=== PATIENT | male | born 1990 | race Caucasian/White ===

== ENCOUNTER 2016-12-17 20:56 | Emergency (ER) | payer OTHER, BC ==
[2016-12-17] MEDS ORDERED: ADACEL/BOOSTRIX VACCINE (DIPHTH/PERTUSS/ACELL/TETANUS)0.5ML SYR (90715) As Ordered ONE (22:30)
[2016-12-17] MEDS ORDERED: DERMABOND TOPICAL SKIN ADHESIVE As Ordered ONE (23:16)
--- NOTE | 2016-12-17 23:42 | EDDOCDS ---
Nurse's Notes [facility] Name: Lucas Mary Age: 25 yrs Sex: Male : 1990 Arrival Date: 12/17/2016 Time: 20:56 Bed I6 / 28 Private MD: No Pcp Diagnosis: Laceration without foreign body of other part of head Presentation: 12/17 21:06 Presenting complaint: Patient states: was working throwing metal into dumpster that cz bounced of dumpster striking him in forehead no LOC. Adult Sepsis Screening: The patient does not have new or worsening altered mentation. Patient's respiratory rate is less than 22. Systolic blood pressure is greater than 100. Patient has a qSOFA score of 0- Negative Sepsis Screen. Suicide/Homicide risk assessment- the patient denies having any suicidal and/or homicidal ideations and does not present with any other emotional, behavioral or mental health complaints. Status: Patient is not a ward service supervisor or dependent. Transition of care: patient was not received from another setting of care. 21:06 Acuity: ANNA Level 4 cz 21:06 Method Of Arrival: Walkin/Carried/Asstd cz Triage Assessment: 21:08 General: Appears in no apparent distress. Pain: Denies pain. Pain. HIV screening NA for cz this visit Offered previously. Historical: - Allergies: Ceclor (Unknown); - Home Meds: 1. none - PSHx: ankle surgery right; - Immunization history:: Last tetanus immunization: unknown. - Family history: Not pertinent. - Social history: Smoking status: Patient states was never smoker of tobacco. No barriers to communication noted, The patient speaks fluent Maltese, Speaks appropriately for age. - : The pt / caregiver states he / she is not on anticoagulants. Home medication list is obtained from the patient. - Exposure Risk Screening:: None identified. Screenin:15 Screening information is obtained from the patient. Fall risk: No risks identified. cz Assistance ADL's: requires no assistance with activities of daily living. Abuse/DV Screen: The patient / caregiver reports he/she is: not in a situation that causes fear, pain or injury. Nutritional screening: No deficits noted. Advance Directives: Currently, there is no health care proxy. There is no active DNR order. There is no living will. There is no Power of Installation & Maintenance Executive. Advance directive information has not previously been placed in an [facility] medical record. home support is adequate. Assessment: 22:15 General: alert male with two lacerations to forehead no bleeding at current time. cz 22:35 General: Appears in no apparent distress, Behavior is cooperative, pleasant. ld5 Neurological: Level of Consciousness is awake, alert. Respiratory: Airway is patent Respiratory effort is even, unlabored. Injury Description: Laceration sustained to forehead is not bleeding. 23:40 General: Appears in no apparent distress, Behavior is cooperative. Pain: Denies pain. ld5 Neurological: Level of Consciousness is awake, alert. Respiratory: Airway is patent Respiratory effort is even, unlabored. Vital Signs: 20:57 BP 148 / 73; Pulse 58; Resp 18; Temp 98.8; Pulse Ox 97% ; Weight 86.18 kg; Height 6 ft. elp 2 in. (187.96 cm); Pain 0/10; 20:57 Body Mass Index 24.39 (86.18 kg, 187.96 cm) elp Vitals: 20:57 Log In Time: December 17, 2016 at 20:55. elp ED Course: 20:57 Patient visited by Graciela Bowles PCA. elp 20:57 No Pcp is Private Physician. elp 20:57 Patient moved to Waiting elp 20:58 Patient visited by Graciela Bowles PCA. elp 20:58 Patient moved to Pre RCE elp 21:07 Triage Initiated cz 22:13 Patient moved to Triage 3 cz 22:15 The patient / caregiver is instructed regarding the plan of care and ED course. cz 22:16 [facility] ar2 22:16 Frank Mercado DO is Attending Physician. ar2 22:16 Patient visited by Jeremiah Quintana PA-C. ar2 22:25 Patient moved to I cln 22:36 Patient visited by Meghann Joshua RN. ld5 23:20 Assist provider with laceration repair using Dermabond. Laceration was 2.6 to 7.5 cm. ld5 with a simple repair. Performed by Jeremiah Quintana PA-C Patient tolerated well. 23:38 [facility] Payment Agreement was scanned into [employer] and attached to record. [email or web address] 23:40 No IV's were initiated during this patient's visit. ld5 23:41 Patient visited by Meghann Joshua,RN. ld5 Administered Medications: 22:34 Drug: Tetanus- Diptheria-Acellular Pertussis 0.5 ml [diphth,pertussis(acel),tetanus 2.5 ld5 Lf unit-8 mcg-5 Lf/0.5mL IM syringe (0.5 mL)] {Associate Theatre Professor: [employer]. Exp: 01/07/2019. Lot #: [id number]. } Route: IM; Site: left deltoid; Order Results: There are currently no results for this order. Outcome: 23:32 Discharge ordered by Provider. ar2 23:40 Discharge Assessment: Patient awake, alert and oriented x 3. No cognitive and/or ld5 functional deficits noted. Patient verbalized understanding of disposition instructions. patient administered narcotics - no. The following High Risk Discharge criteria are identified: None. Discharged to home ambulatory, with parent. Condition: stable. Discharge instructions given to patient, parents Instructed on discharge instructions, follow up and referral plans. wound care, Demonstrated understanding of instructions, Pt was receptive of discharge instructions/ teaching. No special radiology studies were completed. Property :Personal belongings accompany Pt. 23:41 Patient left the ED. ld5 Signatures: Kg Pierce, JAI RN Jeremiah Zhong PA-C PA-C ar2 Meghann Joshua,RN RN ld5 Graciela Bowles, [address] [place] lucillep Lucina Herman, Reg Reg ks16 Janee Tran, [address] [place] cln MTDD
--- NOTE | 2016-12-17 23:42 | EDDOCDS ---
Physician Documentation [facility] Name: Lucas Mary Age: 25 yrs Sex: Male : 1990 Arrival Date: 12/17/2016 Time: 20:56 Bed I6 / 28 Private MD: No Pcp Disposition: 12/17/16 23:32 Discharged to Home/Self Care. Impression: Laceration without foreign body of other part of head. - Condition is Stable. - Discharge Instructions: Tissue Adhesive Wound Care. - Medication Reconciliation, Local Pharmacy Hours form. - Follow up: Emergency Department; When: As needed; Reason: Worsening of conditions. - Problem is new. - Symptoms have improved. Historical: - Allergies: Ceclor (Unknown); - Home Meds: 1. none - PSHx: ankle surgery right; - Immunization history:: Last tetanus immunization: unknown. - Family history: Not pertinent. - Social history: Smoking status: Patient states was never smoker of tobacco. No barriers to communication noted, The patient speaks fluent Czech, Speaks appropriately for age. - : The pt / caregiver states he / she is not on anticoagulants. Home medication list is obtained from the patient. - Exposure Risk Screening:: None identified. Vital Signs: 12/17 20:57 BP 148 / 73; Pulse 58; Resp 18; Temp 98.8; Pulse Ox 97% ; Weight 86.18 kg / 189.99 lbs; elp Height 6 ft. 2 in. (187.96 cm); Pain 0/10; 20:57 Body Mass Index 24.39 (86.18 kg, 187.96 cm) elp MDM: 22:24 Tetanus- Diptheria-Acellular Pertussis 0.5 ml IM once; Routine booster 10-64yrs, >64 ar2 with child contact [place] [employer] ordered. 22:24 Ice Pack ordered. ar2 23:16 Dermabond to bedside ordered. ar2 23:38 Financial registration complete. [facility] 23:38 [facility] Payment Agreement was scanned into [employer] and attached to record. 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 Exp: 01/07/2019. Lot #: [id number]. } Route: IM; Site: left deltoid; Signatures: Kg Pierce RN RN cz Jeremiah Quintana, PAFamC PA-C ar2 Meghann Joshua RN RN ld5 Lucina Herman, Reg Reg ks16 The chart was reviewed and I authenticate all verbal orders and agree with the evaluation and treatment provided.Attachments: 23:38 [facility] Payment Agreement ks16 MTDD
--- NOTE | 2016-12-20 00:42 | EDDOCDS ---
Physician Documentation [facility] Name: Lucas Mary Age: 25 yrs Sex: Male : 1990 Arrival Date: 12/17/2016 Time: 20:56 Bed I6 / 28 Private MD: No Pcp Disposition: 12/17/16 23:32 Discharged to Home/Self Care. Impression: Laceration without foreign body of other part of head. - Condition is Stable. - Discharge Instructions: Tissue Adhesive Wound Care. - Medication Reconciliation, Local Pharmacy Hours form. - Follow up: Emergency Department; When: As needed; Reason: Worsening of conditions. - Problem is new. - Symptoms have improved. Historical: - Allergies: Ceclor (Unknown); - Home Meds: 1. none - PSHx: ankle surgery right; - Immunization history:: Last tetanus immunization: unknown. - Family history: Not pertinent. - Social history: Smoking status: Patient states was never smoker of tobacco. No barriers to communication noted, The patient speaks fluent Malay, Speaks appropriately for age. - : The pt / caregiver states he / she is not on anticoagulants. Home medication list is obtained from the patient. - Exposure Risk Screening:: None identified. Vital Signs: 12/17 20:57 BP 148 / 73; Pulse 58; Resp 18; Temp 98.8; Pulse Ox 97% ; Weight 86.18 kg / 189.99 lbs; elp Height 6 ft. 2 in. (187.96 cm); Pain 0/10; 20:57 Body Mass Index 24.39 (86.18 kg, 187.96 cm) elp MDM: 22:24 Tetanus- Diptheria-Acellular Pertussis 0.5 ml IM once; Routine booster 10-64yrs, >64 ar2 with child contact [place] [employer] ordered. 22:24 Ice Pack ordered. ar2 23:16 Dermabond to bedside ordered. ar2 23:38 Financial registration complete. [facility] 23:38 [facility] Payment Agreement was scanned into [employer] and attached to record. [email or web address] 12/18 10:54 T-Sheet-- Draft Copy was scanned into [employer] and attached to record. 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 Exp: 01/07/2019. Lot #: [id number]. } Route: IM; Site: left deltoid; Signatures: Kg Pierce, JAI RN cz Daisy Camacho, Reg Reg gb Jeremiah Quintana, MOJGAN ULRICH ar2 Meghann Joshua RN RN ld5 Lucina Herman, Reg Reg ks16 The chart was reviewed and I authenticate all verbal orders and agree with the evaluation and treatment provided.Attachments: 23:38 [facility] Payment Agreement ks16 12/18 10:54 T-Sheet-- Draft Copy gb Chart Complete MTDD
--- NOTE | 2016-12-20 00:42 | EDDOCDS ---
Nurse's Notes [facility] Name: Lucas Mary Age: 25 yrs Sex: Male : 1990 Arrival Date: 12/17/2016 Time: 20:56 Bed I6 / 28 Private MD: No Pcp Diagnosis: Laceration without foreign body of other part of head Presentation: 12/17 21:06 Presenting complaint: Patient states: was working throwing metal into dumpster that cz bounced of dumpster striking him in forehead no LOC. Adult Sepsis Screening: The patient does not have new or worsening altered mentation. Patient's respiratory rate is less than 22. Systolic blood pressure is greater than 100. Patient has a qSOFA score of 0- Negative Sepsis Screen. Suicide/Homicide risk assessment- the patient denies having any suicidal and/or homicidal ideations and does not present with any other emotional, behavioral or mental health complaints. Status: Patient is not a truck rental service attendant or dependent. Transition of care: patient was not received from another setting of care. 21:06 Acuity: ANNA Level 4 cz 21:06 Method Of Arrival: Walkin/Carried/Asstd cz Triage Assessment: 21:08 General: Appears in no apparent distress. Pain: Denies pain. Pain. HIV screening NA for cz this visit Offered previously. Historical: - Allergies: Ceclor (Unknown); - Home Meds: 1. none - PSHx: ankle surgery right; - Immunization history:: Last tetanus immunization: unknown. - Family history: Not pertinent. - Social history: Smoking status: Patient states was never smoker of tobacco. No barriers to communication noted, The patient speaks fluent Latvian, Speaks appropriately for age. - : The pt / caregiver states he / she is not on anticoagulants. Home medication list is obtained from the patient. - Exposure Risk Screening:: None identified. Screenin:15 Screening information is obtained from the patient. Fall risk: No risks identified. cz Assistance ADL's: requires no assistance with activities of daily living. Abuse/DV Screen: The patient / caregiver reports he/she is: not in a situation that causes fear, pain or injury. Nutritional screening: No deficits noted. Advance Directives: Currently, there is no health care proxy. There is no active DNR order. There is no living will. There is no Power of Right Of Way Appraiser. Advance directive information has not previously been placed in an [facility] medical record. home support is adequate. Assessment: 22:15 General: alert male with two lacerations to forehead no bleeding at current time. cz 22:35 General: Appears in no apparent distress, Behavior is cooperative, pleasant. ld5 Neurological: Level of Consciousness is awake, alert. Respiratory: Airway is patent Respiratory effort is even, unlabored. Injury Description: Laceration sustained to forehead is not bleeding. 23:40 General: Appears in no apparent distress, Behavior is cooperative. Pain: Denies pain. ld5 Neurological: Level of Consciousness is awake, alert. Respiratory: Airway is patent Respiratory effort is even, unlabored. Vital Signs: 20:57 BP 148 / 73; Pulse 58; Resp 18; Temp 98.8; Pulse Ox 97% ; Weight 86.18 kg; Height 6 ft. elp 2 in. (187.96 cm); Pain 0/10; 20:57 Body Mass Index 24.39 (86.18 kg, 187.96 cm) elp Vitals: 20:57 Log In Time: December 17, 2016 at 20:55. elp ED Course: 20:57 Patient visited by Graciela Bowles PCA. elp 20:57 No Pcp is Private Physician. elp 20:57 Patient moved to Waiting elp 20:58 Patient visited by Graciela Bowles PCA. elp 20:58 Patient moved to Pre RCE elp 21:07 Triage Initiated cz 22:13 Patient moved to Triage 3 cz 22:15 The patient / caregiver is instructed regarding the plan of care and ED course. cz 22:16 Jeremiah Quintana [facility]-C [facility]. ar2 22:16 Frank Mercado DO is Attending Physician. ar2 22:16 Patient visited by Jeremiah Quintana PA-C. ar2 22:25 Patient moved to I cln 22:36 Patient visited by Meghann Joshua RN. ld5 23:20 Assist provider with laceration repair using Dermabond. Laceration was 2.6 to 7.5 cm. ld5 with a simple repair. Performed by Jeremiah Quintana PA-C Patient tolerated well. 23:38 [facility] [place] Agreement was scanned into [employer] and attached to record. ks16 23:40 No IV's were initiated during this patient's visit. ld5 23:41 Patient visited by Meghann Joshua RN. ld5 12/18 10:54 T-Sheet-- Draft Copy was scanned into [employer] and attached to record. gb Administered Medications: 12/17 22:34 Drug: Tetanus- Diptheria-Acellular Pertussis 0.5 ml [diphth,pertussis(acel),tetanus 2.5 ld5 Lf unit-8 mcg-5 Lf/0.5mL IM syringe (0.5 mL)] {Human Services Supervisor: [employer]. Exp: 01/07/2019. Lot #: [id number]. } Route: IM; Site: left deltoid; Order Results: There are currently no results for this order. Outcome: 23:32 Discharge ordered by Provider. ar2 23:40 Discharge Assessment: Patient awake, alert and oriented x 3. No cognitive and/or ld5 functional deficits noted. Patient verbalized understanding of disposition instructions. patient administered narcotics - no. The following High Risk Discharge criteria are identified: None. Discharged to home ambulatory, with parent. Condition: stable. Discharge instructions given to patient, parents Instructed on discharge instructions, follow up and referral plans. wound care, Demonstrated understanding of instructions, Pt was receptive of discharge instructions/ teaching. No special radiology studies were completed. Property :Personal belongings accompany Pt. 23:41 Patient left the ED. ld5 Signatures: Kg Pierce, JAI VERGARA cz Daisy Camacho, Reg Reg gb Jeremiah Quintana, PA-C PA-C ar2 Meghann Joshua RN RN ld5 Graciela Bowles, INSTANT PRINTER OPERATOR INSTANT PRINTER OPERATOR Lucina Tran, Reg Reg ks16 Janee Tran, INSTANT PRINTER OPERATOR INSTANT PRINTER OPERATOR cln Chart Complete MTDD
--- NOTE | 2016-12-20 00:42 | EDDOCDS ---
Physician Documentation [facility] Name: Lucas Mary Age: 25 yrs Sex: Male : 1990 Arrival Date: 12/17/2016 Time: 20:56 Bed I6 / 28 Private MD: No Pcp Disposition: 12/17/16 23:32 Discharged to Home/Self Care. Impression: Laceration without foreign body of other part of head. - Condition is Stable. - Discharge Instructions: Tissue Adhesive Wound Care. - Medication Reconciliation, Local Pharmacy Hours form. - Follow up: Emergency Department; When: As needed; Reason: Worsening of conditions. - Problem is new. - Symptoms have improved. Historical: - Allergies: Ceclor (Unknown); - Home Meds: 1. none - PSHx: ankle surgery right; - Immunization history:: Last tetanus immunization: unknown. - Family history: Not pertinent. - Social history: Smoking status: Patient states was never smoker of tobacco. No barriers to communication noted, The patient speaks fluent [place], Speaks appropriately for age. - : The pt / caregiver states he / she is not on anticoagulants. Home medication list is obtained from the patient. - Exposure Risk Screening:: None identified. Vital Signs: 12/17 20:57 BP 148 / 73; Pulse 58; Resp 18; Temp 98.8; Pulse Ox 97% ; Weight 86.18 kg / 189.99 lbs; elp Height 6 ft. 2 in. (187.96 cm); Pain 0/10; 20:57 Body Mass Index 24.39 (86.18 kg, 187.96 cm) elp MDM: 22:24 Tetanus- Diptheria-Acellular Pertussis 0.5 ml IM once; Routine booster 10-64yrs, >64 ar2 with child contact [place] [employer] ordered. 22:24 Ice Pack ordered. ar2 23:16 Dermabond to bedside ordered. ar2 23:38 Financial registration complete. [facility] 23:38 [facility] Payment Agreement was scanned into [employer] and attached to record. ks16 12/18 10:54 T-Sheet-- Draft Copy was scanned into [employer] and attached to record. gb Administered Medications: 12/17 22:34 Drug: Tetanus- Diptheria-Acellular Pertussis 0.5 ml [diphth,pertussis(acel),tetanus 2.5 ld5 Lf unit-8 mcg-5 Lf/0.5mL IM syringe (0.5 mL)] {Principal Research Economist: [employer]. Exp: 01/07/2019. Lot #: [id number]. } Route: IM; Site: left deltoid; Signatures: Kg Pierce, JAI RN cz Daisy Camacho, Reg Reg gb Jeremiah Quintana, MOJGAN ULRICH ar2 Meghann Joshua RN RN ld5 Lucina Herman, Reg Reg ks16 The chart was reviewed and I authenticate all verbal orders and agree with the evaluation and treatment provided.Attachments: 23:38 [facility] Payment Agreement ks16 12/18 10:54 T-Sheet-- Draft Copy gb Chart Complete MTDD
== END 2016-12-17 23:41 | disposition home or self-care (01) ==
LOC: M ED 20:56
DX: S01.81XA Laceration without foreign body of other part of head, initial encounter (principal); W22.8XXA Striking against or struck by other objects, initial encounter; Y92.89 Other specified places as the place of occurrence of the external cause; Y93.89 Activity, other specified; Y99.0 Civilian activity done for income or pay; Z88.1 Allergy status to other antibiotic agents

== ENCOUNTER → 2024-10-25 | Outpatient (REF) | payer OTHER | LOC: M SMT 12:43 | PROVIDERS: ATTEND Urology | DX: Z30.2 Encounter for sterilization (principal) ==

== ENCOUNTER 2025-10-04 11:24 | Emergency (ER) | payer OTHER ==
[~2025-10-04] VITALS: Ht 188 cm; Wt 76.0 kg
[2025-10-04 12:23] LABS: BASO # 0.1 10^3/uL (0.0-0.2); BASO % 1.0 % (0.0-1.0); EOS # 0.1 10^3/uL (0.0-0.5); EOS % 1.9 % (0.0-3.0); LYMPH # 3.0 10^3/uL (1.5-5.0); LYMPH % 42.8 % (24.0-44.0); MONO # 0.6 10^3/uL (0.0-0.8); MONO % 9.1 % (2.0-8.0); NEUTROPHILS # 3.1 10^3/uL (1.5-8.5); NEUTROPHILS % 45.1 % (36.0-66.0); PLATELET COUNT, AUTOMATED 241 10^3/uL (150-450)
[2025-10-04 12:57] LABS: CALCIUM LEVEL 9.2 MG/DL (8.5-10.1); CARBON DIOXIDE LEVEL 21 MMOL/L (20-31); CHLORIDE LEVEL 108 MMOL/L (98-107); CK-MB VALUE MASS 1.6 NG/ML (<3.6); CPK CREATINE PHOSPHOKINASE 196 U/L (46-171); CREATININE FOR GFR 0.75 MG/DL (0.70-1.30); GLOMERULAR FILTRATION RATE > 90.0 (>60); MB/CK RELATIVE INDEX 0.81 (< OR =4); POTASSIUM SERUM 5.7 MMOL/L (3.5-5.1); SODIUM LEVEL 142 MMOL/L (136-145)
[2025-10-04] MEDS: NS (Normal Saline) 0.9% 1,000 ML IV ONE (15:22)
[2025-10-04] MEDS: LORazepam 0.5 MG TAB PO STA (15:22)
[2025-10-04 17:15] VITALS: BP 127/70; O2SAT 99
[2025-10-04] MEDS ORDERED: HYDR1TAB33 PO (17:16)
[2025-10-04 17:21] VITALS: TEMP 97.4
== END 2025-10-04 17:47 | disposition home or self-care (01) ==
LOC: M ED 11:24
DX: R07.9 Chest pain, unspecified (principal); F41.9 Anxiety disorder, unspecified; Z72.820 Sleep deprivation; R00.1 Bradycardia, unspecified; F17.200 Nicotine dependence, unspecified, uncomplicated; F10.10 Alcohol abuse, uncomplicated; Z79.899 Other long term (current) drug therapy